=== PATIENT | male | born 1980 | race Caucasian/White ===

== ENCOUNTER 2016-11-15 12:14 | Emergency (ER) | payer MEDICAID, OTHER ==
[2016-11-15] MEDS ORDERED: METHOCARBAMOL 500 MG TABLET PO STA (13:14)
[2016-11-15] MEDS ORDERED: HYDROcod/ACETAM 5/325 MG TABLET PO STA (13:14)
[2016-11-15] MEDS ORDERED: TRIAMCINOLONE 40 MG/ML VIAL IM STA (13:14)
[2016-11-15] MEDS ORDERED: KETOROLAC 30 MG/ML VIAL IM STA (13:14)
[2016-11-15] MEDS ORDERED: TRIAMCINOLONE 40 MG/ML VIAL ONE (13:16)
[2016-11-15] MEDS ORDERED: METHOCARBAMOL 500 MG TABLET PO ONE (13:33)
[2016-11-15] MEDS ORDERED: KETOROLAC 30 MG/ML VIAL ONE (13:34)
[2016-11-15] MEDS ORDERED: HYDROcod/ACETAM 5/325 MG TABLET ONE (13:35)
[2016-11-15 13:45] VITALS: BP 138/93
--- NOTE | 2016-11-15 14:00 | ED Physician Documentation ---
PD HPI BACK PAIN - Stated complaint Stated Complaint: L LEG PAIN - Chief complaint Chief Complaint: Ext Problem - History obtained from History obtained from: Patient - History of Present Illness Timing - onset: How many months ago (2 months) Timing - details: Still present, Waxing and waning Location: Lower, Left (radiating to anteromedial left thigh down to knee.) Quality: Pain, Spasm, Aching Associated symptoms: No: Fever, Weakness, Numbness, Incontinent of urine Worsened by: Movement, Lifting Contributing factors: Lifting Recently seen: Clinic (has been getting PT and has Rx meds from clinic, not effective the past few days as pain is worse. No new injury.) Review of Systems Constitutional: denies: Fever, Chills Skin: denies: Rash, Lesions Neurologic: reports: Numbness (intermittent in left thigh.). denies: Focal weakness PD PAST MEDICAL HISTORY - Past Medical History Cardiovascular: None Respiratory: None Neuro: None Endocrine/Autoimmune: None GI: None : None HEENT: None Psych: None Musculoskeletal: Chronic back pain Derm: None - Past Surgical History Past Surgical History: Yes Ortho: Arthroscopic surgery - Present Medications Home Medications: Ambulatory Orders Medication Instructions Recorded Confirmed Cyclobenzaprine [Flexeril] 1 tab PO DAILY 11/15/16 11/15/16 Dexamethasone [Decadron] 4 mg PO DAILY #5 tablet 11/15/16 Gabapentin [Neurontin] 300 mg PO Q8HR 11/15/16 11/15/16 Hydrocodone/Acetaminophen [[place] 1 each PO Q6H PRN #20 tablet 11/15/16 5-325 Tablet] Methocarbamol [Robaxin] 500 mg PO Q6H PRN #25 tablet 11/15/16 Naproxen 375 mg PO BID #20 tablet 11/15/16 Tramadol HCl [Ultram] 2 tab PO Q6HR 11/15/16 11/15/16 - Allergies Allergies/Adverse Reactions: Allergies Allergy/AdvReac Type Severity Reaction Status Date / Time No Known Drug Allergies Allergy Verified 11/15/16 12:20 - Social History Does the pt smoke?: Yes Smoking Status: Current every day smoker Does the pt drink ETOH?: Yes Does the pt have substance abuse?: Yes - Immunizations Immunizations are current?: Yes Immunizations: TDAP >10years/unknown - POLST Patient has POLST: No PD ED PE NORMAL - Vitals Vital signs reviewed: Yes - General General: Alert and oriented X 3, Well developed/nourished, Other (appears in pain, also distraught about the failure of PT and meds so far in the course of this, frustrated over it for couple of months duration. ) - Abdomen Abdomen: Soft, Non tender - Rectal Rectal: Deferred - Back Back: No spinal TTP (tender left lateral lower back, more around SI area. ) - Derm Derm: Normal color, Warm and dry, No rash - Neuro Neuro: No motor deficit, Other (mild decreased sensation anteriomedial left thigh. Normal motor movement in legs. ) Results - Vitals Vitals: Vital Signs - 24 hr 11/15/16 11/15/16 12:17 13:43 Temperature 36.9 C 38.1 C H Heart Rate 100 77 Respiratory 19 18 Rate Blood Pressure 158/100 H 138/93 H O2 Saturation 100 96 Oxygen O2 Source Room air PD MEDICAL DECISION MAKING - ED course Complexity details: reviewed old records, considered differential (seems musculoskeletal back pain with radiation to left thigh, c/w nerve root. No red flags. ), d/w patient Departure - Departure Disposition: Home, Self Care Clinical Impression: Back pain Qualifiers: Back pain location: low back pain Chronicity: acute Back pain laterality: left Sciatica presence: with sciatica Sciatica laterality: sciatica of left side Qualified Code(s): M54.42 - Lumbago with sciatica, left side Condition: Stable Record reviewed to determine appropriate education?: Yes Instructions: ED Sciatica Follow-Up: Dayron Stephen MD [Primary Care Provider] - Prescriptions: Dexamethasone [Decadron] 4 mg PO DAILY #5 tablet Naproxen 375 mg PO BID #20 tablet Hydrocodone/Acetaminophen [[place] 5-325 Tablet] 1 each PO Q6H PRN #20 tablet PRN Reason: Pain Methocarbamol [Robaxin] 500 mg PO Q6H PRN #25 tablet PRN Reason: Spasms Comments: Continue current medications. Add Decadron daily for 5 days, and Naproxen twice daily for a week. Robaxin for muscle spasms, and add hydrocodone as neede for pain short term. Follow up with PMD in about 4-5 days for follow up on how this is working, call for appt. Discharge Date/Time: 11/15/16 14:11
== END 2016-11-15 14:11 | disposition home or self-care (01) ==
LOC: ED 12:14
DX: M54.42 Lumbago with sciatica, left side (principal); F17.200 Nicotine dependence, unspecified, uncomplicated
CPT/HCPCS: 96372; 99283

== ENCOUNTER 2017-03-21 14:09 | Outpatient (CLI) | payer MEDICAID ==
--- NOTE | 2017-03-21 18:38 | MRI Report ---
EXAM: MRI LUMBAR SPINE WITHOUT CONTRAST EXAM DATE: 03/21/2017 03:07 PM. CLINICAL HISTORY: Radicular low back pain, left-sided sciatica. COMPARISON: None. TECHNIQUE: Multiplanar, multisequence T1-weighted and fluid-sensitive sequences of the lumbar spine f rom T12 to S1 without contrast. Other: None. FINDINGS: Spinal Cord: The conus terminates at T12. No signal abnormality in the visualized spinal cord. Alignment: Normal. No scoliosis or spondylolisthesis. Bone Marrow: Five gwz-pri-xnlziti lumbar vertebral bodies are assumed. No gross fractures or bone les ions. No bone marrow edema. Disk Levels/Facets: T12-L1: Unremarkable. L1-L2: Unremarkable. L2-L3: Mild central broad-based disk bulge. Left lateral intraforaminal disk positive mass effect on the exiting left L2 root. Please see series 401 image 3. Right neural foraminal is normal. No central stenosis. L3-L4: Disk dehydration, superiorly and left laterally directed disk extrusion also extends into the neural foramina with effacement and deformity of the exiting left L3 root on series 401 image 2. This measures 7 x 5 mm transversely and extends for a 16 mm cephalocaudal extent. L4-L5: Broad-based disk bulge is seen. Prominent facets. Mild central stenosis. No foraminal narrowin g. L5-S1: Broad-based disk bulge is seen. Mild facet arthropathy. Mild central stenosis, no foraminal na rrowing. Musculature: Normal. No edema or fatty atrophy. Other: The visualized pelvic cavity is unremarkable. IMPRESSION: 1. Spinal cord terminates at T12 which is normal. No abnormal cord signal is seen. No fractures. 2. L2-L3 shows a mild broad-based bulge centrally and a left lateral intraforaminal disk extrusion ex erting significant mass effect on the left L2 root. No central stenosis. Right neural foramen is norm al. 3. L3-L4 shows disk dehydration with superior and left lateral directed disk extrusion with effacemen t and flattening of the exiting left L3 root. Severe left foraminal stenosis. Central canal and right neural foramen are normal. 4. L4-L5 shows a broad-based bulge and prominent facets. No significant stenosis. 5. L5-S1 shows a broad-based bulge and mild facet arthropathic change. Mild central stenosis, no fora david stenosis. Comment: The following findings are so common in adults without low back pain that while we report th eir presence, they must be interpreted with caution and in the context of the clinical situation. (Re renan Briceño et al, Spine 2001) Prevalence of findings in patients without low back pain: Disk degeneration (any evidence): 92% Disk desiccation/T2 signal loss: 83% Disk height loss: 56% Disk bulge: 64% Disk protrusion: 32% Annular tear/high intensity zone: 38% [facility] Referring Provider Line: [phone] SITE ID: [id number]
== END 2017-03-21 14:10 | disposition home or self-care (01) ==
LOC: DI 14:09
PROVIDERS: ATTEND Family Medicine
DX: M51.26 Other intervertebral disc displacement, lumbar region (principal); M51.36 Other intervertebral disc degeneration, lumbar region; M47.897 Other spondylosis, lumbosacral region
CPT/HCPCS: 72148

== ENCOUNTER 2017-06-14 11:12 | Emergency (ER) | payer MEDICAID ==
[2017-06-14 11:22] VITALS: BP 140/95
[2017-06-14] MEDS ORDERED: predniSONE 20 MG TABLET PO STA (12:48)
[2017-06-14] MEDS ORDERED: KETOROLAC 60 MG/2 ML VIAL IM STA (12:48)
[2017-06-14] MEDS ORDERED: HYDROmorphone 1 MG/ML SYRINGE IM STA (12:48)
--- NOTE | 2017-06-14 12:50 | ED Physician Documentation ---
PD HPI BACK PAIN - Stated complaint Stated Complaint: LEFT SIDE & LEG PX - Chief complaint Chief Complaint: Back Pain - History obtained from History obtained from: Patient - History of Present Illness Timing - onset: Other (36-year-old gentleman with chronic radicular pain from what he describes as an L1-L2 disc herniation seen on prior MRI. Pain suddenly became worse yesterday after coughing and pain radiates down the left leg past the knee without saddle anesthesia, weakness, numbness, tingling, fevers, or inability to walk. He feels most comfortable at rest, laying on his stomach.) Review of Systems Constitutional: denies: Fever, Chills Cardiac: reports: Reviewed and negative Respiratory: reports: Reviewed and negative GI: reports: Reviewed and negative PD PAST MEDICAL HISTORY - Past Medical History Past Medical History: No Cardiovascular: None Respiratory: None Neuro: None Endocrine/Autoimmune: None GI: None : None HEENT: None Psych: None Musculoskeletal: Osteoarthritis, Chronic back pain Derm: None - Past Surgical History Past Surgical History: Yes Ortho: Arthroscopic surgery - Present Medications Home Medications: Ambulatory Orders Medication Instructions Recorded Confirmed Cyclobenzaprine [Flexeril] 1 tab PO DAILY 11/15/16 06/14/17 Gabapentin [Neurontin] 300 mg PO Q8HR 11/15/16 06/14/17 Hydrocodone/Acetaminophen [[place] 1 each PO Q6H PRN #20 tablet 11/15/16 06/14/17 5-325 Tablet] Methocarbamol [Robaxin] 500 mg PO Q6H PRN #25 tablet 11/15/16 06/14/17 Naproxen 375 mg PO BID #20 tablet 11/15/16 06/14/17 Tramadol HCl [Ultram] 2 tab PO Q6HR 11/15/16 06/14/17 HYDROcod/ACETAM 5/325 [[place] 5/325] 1 - 2 ea PO Q6H PRN #15 tablet 06/14/17 predniSONE [Deltasone] 60 mg PO DAILY 5 Days tablet 06/14/17 - Allergies Allergies/Adverse Reactions: Allergies Allergy/AdvReac Type Severity Reaction Status Date / Time No Known Drug Allergies Allergy Verified 06/14/17 11:22 - Social History Does the pt smoke?: Yes Smoking Status: Current every day smoker Does the pt drink ETOH?: Yes ETOH Use: Beer Does the pt have substance abuse?: No - Immunizations Immunizations are current?: Yes Immunizations: TDAP >10years/unknown - POLST Patient has POLST: No PD ED PE NORMAL - Vitals Vital signs reviewed: Yes - General General: Alert and oriented X 3, Other ([place] with motion, comfortable at rest) - Back Back: No spinal TTP - Extremities Extremities: Other (The patient has equal and normal Achilles and patellar reflexes bilaterally. Normal sensation in all areas of the legs. Patient denies saddle anesthesia. Normal strength in flexion-extension at the ankles, knees, and flexion of the hips.) - Neuro Neuro: Alert and oriented X 3, Normal speech - Psych Psych: Normal mood, Normal affect Results - Vitals Vitals: Vital Signs - 24 hr 06/14/17 11:19 Temperature 37.4 C Heart Rate 84 Respiratory 16 Rate Blood Pressure 140/95 H O2 Saturation 100 Oxygen O2 Source Room air PD MEDICAL DECISION MAKING - ED course ED course: The [place] prescription monitoring program was queried with regard to this patient. No concerning findings were found. This patient has seemingly uncomplicated musculoskeletal back pain. The patient has no "red flags." Specifically denies IV drug use, fevers, incontinence, saddle anesthesia. Spinal epidural abscess was considered, given that the patient has no fever, is not diabetic, has no spinal tenderness, does not use IV drugs, and has no bilateral neurologic symptoms, the diagnosis of spinal epidural abscess is considered exceedingly unlikely. Departure - Departure Disposition: Home, Self Care Clinical Impression: Sciatica Qualifiers: Laterality: left Qualified Code(s): M54.32 - Sciatica, left side Condition: Good Record reviewed to determine appropriate education?: Yes Instructions: ED Sciatica Prescriptions: HYDROcod/ACETAM 5/325 [[place] 5/325] 1 - 2 ea PO Q6H PRN #15 tablet PRN Reason: Pain predniSONE [Deltasone] 60 mg PO DAILY 5 Days tablet Comments: Call your doctor to arrange a follow-up appointment, make the next available appointment. In the interim, return anytime if worse or if new symptoms develop. Your blood pressure was elevated today on check into the emergency department. This does not mean that you have hypertension, it is a common phenomenon to come to the emergency department and have elevated blood pressure. I recommend that you see your primary care physician within the week to have it rechecked when you are feeling better. Do not drink or drive while taking narcotic pain medication. Note that many narcotic pain relievers also contain Tylenol/acetaminophen. Please ensure that your total dose of acetaminophen from all sources does not exceed 3 g (3000 mg) per day. You may get constipated while on this medication. Take a stool softener such as Colace twice a day while you are on it. Also add an [id number] laxative such as senna or MiraLAX on any day that you do not have a bowel movement. If you received a narcotic pain medication or sedative while in the emergency department, do not drive for the next 24 hours.
== END 2017-06-14 13:16 | disposition home or self-care (01) ==
LOC: ED 11:12
DX: M54.32 Sciatica, left side (principal); M19.90 Unspecified osteoarthritis, unspecified site; F17.200 Nicotine dependence, unspecified, uncomplicated; R03.0 Elevated blood-pressure reading, without diagnosis of hypertension
CPT/HCPCS: 96372; 99283; J1170; J7512

== ENCOUNTER 2017-06-17 13:13 | Emergency (ER) | payer MEDICAID ==
[2017-06-17] MEDS ORDERED: BUPIVACAINE 0.5%-EPI 1:200000 PF 30 ML VIAL SUBQ ONE (13:52)
[2017-06-17] MEDS ORDERED: HYDROmorphone 1 MG/ML SYRINGE IM STA ×2 (13:52→15:07)
[2017-06-17] MEDS ORDERED: KETOROLAC 60 MG/2 ML VIAL IM STA (13:52)
[2017-06-17] MEDS ORDERED: TRIAMCINOLONE 40 MG/ML VIAL IM STA (13:52)
--- NOTE | 2017-06-17 13:55 | ED Physician Documentation ---
PD HPI BACK PAIN - Stated complaint Stated Complaint: LEFT LEG/LOW BACK PX - Chief complaint Chief Complaint: Back Pain - History obtained from History obtained from: Patient - History of Present Illness Timing - onset: Other (36-year-old gentleman with chronic back pain undergoing an exacerbation with severe pain in the left low back radiating down to the knee , sometimes his knee is giving out on him. He was seen the other day, started on hydrocodone and prednisone which is insufficient. Prior MRI from March of this year reviewed with pretty significant disease.) Review of Systems Constitutional: denies: Fever, Chills Nose: denies: Rhinorrhea / runny nose, Congestion, Foreign Body Respiratory: reports: Reviewed and negative GI: reports: Reviewed and negative : reports: Reviewed and negative PD PAST MEDICAL HISTORY - Past Medical History Cardiovascular: None Respiratory: None Neuro: None Endocrine/Autoimmune: None GI: None : None HEENT: None Psych: None Musculoskeletal: Osteoarthritis, Chronic back pain Derm: None - Past Surgical History Past Surgical History: Yes Ortho: Arthroscopic surgery - Present Medications Home Medications: Ambulatory Orders Medication Instructions Recorded Confirmed Cyclobenzaprine [Flexeril] 1 tab PO DAILY 11/15/16 06/14/17 Gabapentin [Neurontin] 300 mg PO Q8HR 11/15/16 06/14/17 Hydrocodone/Acetaminophen [[place] 1 each PO Q6H PRN #20 tablet 11/15/16 06/14/17 5-325 Tablet] Methocarbamol [Robaxin] 500 mg PO Q6H PRN #25 tablet 11/15/16 06/14/17 Tramadol HCl [Ultram] 2 tab PO Q6HR 11/15/16 06/14/17 predniSONE [Deltasone] 60 mg PO DAILY 5 Days tablet 06/14/17 Gabapentin 2 tab PO TID #90 capsule 06/17/17 Oxycodone HCl/Acetaminophen 1 - 2 tab PO Q4H PRN #15 tablet 06/17/17 [Percocet 5-325 mg Tablet] - Allergies Allergies/Adverse Reactions: Allergies Allergy/AdvReac Type Severity Reaction Status Date / Time No Known Drug Allergies Allergy Verified 06/17/17 13:33 - Social History Does the pt smoke?: Yes Smoking Status: Current every day smoker Does the pt drink ETOH?: Yes Does the pt have substance abuse?: No - Immunizations Immunizations are current?: Yes Immunizations: TDAP >10years/unknown - POLST Patient has POLST: No PD ED PE NORMAL - Vitals Vital signs reviewed: Yes - General General: Alert and oriented X 3, No acute distress - Respiratory Respiratory: No respiratory distress, Clear bilaterally - Abdomen Abdomen: Normal bowel sounds, Soft, Non tender - Back Back: No spinal TTP, Other (Mildly diminished sensation over the left thigh, otherwise symmetric sensation throughout the legs, able to walk and bear weight without issue but is uncomfortable, laying either on his stomach or right lateral decubitus.) - Neuro Neuro: Alert and oriented X 3, Normal speech Results - Vitals Vitals: Vital Signs - 24 hr 06/17/17 13:30 Temperature 37.2 C Heart Rate 81 Respiratory 18 Rate Blood Pressure 160/99 H O2 Saturation 95 Oxygen O2 Source Room air PD MEDICAL DECISION MAKING - ED course ED course: He says that in October he was seen here and had a trigger point injection, this was repeated in the left low back using 9 mL of Marcaine with epi and 40 mg of triamcinolone. The Dilaudid and Toradol were repeated and we will increase his gabapentin and switch him to Percocet. He is advised to talk to his doctor about a spinal referral. Departure - Departure Disposition: 01 Home, Self Care Clinical Impression: Sciatica Qualifiers: Laterality: left Qualified Code(s): M54.32 - Sciatica, left side Condition: Good Record reviewed to determine appropriate education?: Yes Instructions: ED Sciatica Prescriptions: Gabapentin 2 tab PO TID #90 capsule Oxycodone HCl/Acetaminophen [Percocet 5-325 mg Tablet] 1 - 2 tab PO Q4H PRN #15 tablet PRN Reason: Pain Comments: Increasing your gabapentin to 600 mg twice a day, make sure you do not double up on top of which you are already taking, also the Percocet/oxycodone is stronger than the other 2 pain medications, do not take them altogether. I recommend following up with a spine surgeon, one option would be Dr. Baljinder Valdez in [place], . Your blood pressure was elevated today on check into the emergency department. This does not mean that you have hypertension, it is a common phenomenon to come to the emergency department and have elevated blood pressure. I recommend that you see your primary care physician within the week to have it rechecked when you are feeling better. Forms: Activity restrictions
[2017-06-17] MEDS ORDERED: LORazepam 2 MG/ML VIAL IM STA (15:56)
[2017-06-17 17:00] VITALS: BP 158/98
== END 2017-06-17 16:56 | disposition home or self-care (01) ==
LOC: ED 13:13
DX: M54.32 Sciatica, left side (principal); R03.0 Elevated blood-pressure reading, without diagnosis of hypertension; G89.29 Other chronic pain; F17.200 Nicotine dependence, unspecified, uncomplicated
CPT/HCPCS: 20552; 96372; 99283; J1170; J2060

== ENCOUNTER 2017-06-21 10:53 | Emergency (ER) | payer MEDICAID ==
[2017-06-21] MEDS ORDERED: HYDROmorphone 1 MG/ML SYRINGE IM STA (12:27)
[2017-06-21] MEDS ORDERED: LIDOCAINE 1%-EPI 1:100000 20 ML MDV SUBQ STA (12:28)
--- NOTE | 2017-06-21 12:28 | ED Physician Documentation ---
PD HPI LOWER EXT INJURY - Stated complaint Stated Complaint: KNEE PX - Chief complaint Chief Complaint: Ext Problem - History obtained from History obtained from: Patient - History of Present Illness PD HPI LOW EXT INJURY LOCATION: Other (He has chronic back pain, around [place] he coughed and felt a pop in his low back and has had trouble with the left leg ever since. He has been seen a couple of times, he has increasing pain seems more like the left knee now with a small effusion but he denies any fevers. He says it is quite painful when he twists the knee, not so much with flexion or extension but he does feel weak in that leg. He still denies any saddle anesthesia or incontinence.) Review of Systems Ten Systems: 10 systems reviewed and negative Constitutional: denies: Fever, Chills, Myalgias, Fatigue Musculoskeletal: reports: Back pain (mild) PD PAST MEDICAL HISTORY - Past Medical History Cardiovascular: None Respiratory: None Neuro: None Endocrine/Autoimmune: None GI: None : None HEENT: None Psych: None Musculoskeletal: Osteoarthritis, Chronic back pain Derm: None - Past Surgical History Past Surgical History: Yes Ortho: Arthroscopic surgery - Present Medications Home Medications: Ambulatory Orders Medication Instructions Recorded Confirmed Cyclobenzaprine [Flexeril] 1 tab PO DAILY 11/15/16 06/21/17 Gabapentin [Neurontin] 300 mg PO Q8HR 11/15/16 06/21/17 Hydrocodone/Acetaminophen [[place] 1 each PO Q6H PRN #20 tablet 11/15/16 06/21/17 5-325 Tablet] Methocarbamol [Robaxin] 500 mg PO Q6H PRN #25 tablet 11/15/16 06/21/17 Tramadol HCl [Ultram] 2 tab PO Q6HR 11/15/16 06/21/17 Oxycodone HCl/Acetaminophen 1 - 2 tab PO Q4H PRN #15 tablet 06/17/17 06/21/17 [Percocet 5-325 mg Tablet] Oxycodone HCl/Acetaminophen 1 - 2 tab PO Q4H PRN #10 tablet 06/21/17 [Percocet 5-325 mg Tablet] - Allergies Allergies/Adverse Reactions: Allergies Allergy/AdvReac Type Severity Reaction Status Date / Time No Known Drug Allergies Allergy Verified 06/17/17 13:33 - Social History Does the pt smoke?: Yes Smoking Status: Current every day smoker Does the pt drink ETOH?: Yes Does the pt have substance abuse?: No - Family History Family history: reports: Non contributory - Immunizations Immunizations are current?: Yes Immunizations: TDAP >10years/unknown - POLST Patient has POLST: No PD ED PE NORMAL - Vitals Vital signs reviewed: Yes - General General: Alert and oriented X 3, No acute distress - Cardiac Cardiac: RRR, No murmur - Respiratory Respiratory: No respiratory distress, Clear bilaterally - Abdomen Abdomen: Normal bowel sounds, Soft, Non tender - Extremities Extremities: Other (There is a small effusion of the left knee, but it is grossly nontender and he flexes and extends without significant pain. He does have some pain when I twist the leg, in the superior knee area. The hip is nontender. There is no warmth or redness or rash.) - Neuro Neuro: Alert and oriented X 3, Normal speech - Psych Psych: Normal mood, Normal affect Results - Vitals Vitals: Vital Signs - 24 hr 06/21/17 06/21/17 06/21/17 10:54 12:47 14:28 Temperature 37.7 C H Heart Rate 83 72 74 Respiratory 18 16 18 Rate Blood Pressure 153/101 H 138/96 H 151/114 H O2 Saturation 100 96 97 06/21/17 06/21/17 14:50 17:15 Temperature 36.4 C L Heart Rate 74 70 Respiratory 16 18 Rate Blood Pressure 132/96 H 132/96 H O2 Saturation 95 95 Oxygen O2 Source Room air - Labs Labs: Microbiology 06/21/17 12:38 Body Fluid Culture - Preliminary Synovial Fluid Laboratory Tests 06/21/17 06/21/17 06/21/17 12:40 12:40 12:40 WBC 14.6 H RBC 4.67 L Hgb 14.9 Hct 43.5 MCV 93.2 MCH 32.0 H MCHC 34.3 RDW 13.3 Plt Count 309 MPV 7.4 Neut # 10.1 H Lymph # 2.8 [place] # 1.4 H Eos # 0.2 Baso # 0.1 Absolute Nucleated RBC 0.01 Nucleated RBC % 0.0 ESR 1 Sodium 136 Potassium 4.1 Chloride 99 L Carbon Dioxide 27 Anion Gap 10.0 BUN 16 Creatinine 0.8 Estimated GFR (MDRD) 108 Glucose 93 Calcium 8.9 Total Bilirubin 0.5 AST 27 ALT 44 Alkaline Phosphatase 52 C-Reactive Protein < 1.0 Total Protein 7.5 Albumin 4.4 Globulin 3.1 Albumin/Globulin Ratio 1.4 Lipase 29 Procedures - Arthrocentesis Joint: Knee, Left Preparation: Consent obtained, Sterile prep and drape Anesthesia: Lidocaine 1% Fluid: Sent for culture, Fluid obtained - cc (1ml), Sent for gram stain, Other ( The fluid obtained from left knee arthrocentesis was not much, less than 1 ml, it did not appear affect infected, it was relatively clear with a little bit of blood.) PD MEDICAL DECISION MAKING - ED course ED course: 36-year-old gentleman presents, third visit with lower extremity pain previously thought consistent to be radicular from prior known lumbar spine radiculopathy. It started while coughing which fit as well. He has persistent pain that really had now is settled more into the leg and he is tender in the suprapatellar area with a high normal temperature and leukocytosis without elevated ESR or CRP. An arthrocentesis of the left leg was done and only an inconsequential amount of synovial fluid was removed and it did not look grossly infected. It was not a sufficient quantity for cell count but was sent for culture. We tried for MRI, but he was unable to lay flat for the MRI. This is more consistent with a radicular etiology. He refused the MRI and will see his doctor tomorrow. Departure - Departure Disposition: 01 Home, Self Care Clinical Impression: Pain in left leg Sciatica Qualifiers: Laterality: left Qualified Code(s): M54.32 - Sciatica, left side Condition: Good Record reviewed to determine appropriate education?: Yes Instructions: ED Sciatica Prescriptions: Oxycodone HCl/Acetaminophen [Percocet 5-325 mg Tablet] 1 - 2 tab PO Q4H PRN #10 tablet PRN Reason: Pain Comments: See your doctor tomorrow as scheduled. Your blood pressure was elevated today on check into the emergency department. This does not mean that you have hypertension, it is a common phenomenon to come to the emergency department and have elevated blood pressure. I recommend that you see your primary care physician within the week to have it rechecked when you are feeling better. Forms: Activity restrictions Discharge Date/Time: 06/21/17 17:16
[2017-06-21 12:48] LABS: BASOPHILS # (AUTO) 0.1 10^3/uL (0.0-0.1); BASOPHILS % (AUTO) 0.5 %; EOSINOPHILS # (AUTO) 0.2 10^3/uL (0.0-0.7); EOSINOPHILS % (AUTO) 1.3 %; HGB - HEMOGLOBIN 14.9 g/dL (14.0-18.0); LYMPHOCYTES # (AUTO) 2.8 10^3/uL (1.5-3.5); LYMPHOCYTES % (AUTO) 19.2 %; MEAN CORPUSCULAR HGB CONC 34.3 g/dL (32.0-36.0); MEAN CORPUSCULAR VOLUME 93.2 fL (80.0-94.0); MEAN PLATELET VOLUME 7.4 fL (7.4-11.4); MONOCYTES # (AUTO) 1.4 10^3/uL (0.0-1.0); MONOCYTES % (AUTO) 9.6 %; NEUTROPHILS # (AUTO) 10.1 10^3/uL (1.5-6.6); NEUTROPHILS % (AUTO) 69.4 %; PLT - PLATELET COUNT 309 10^3/uL (130-450); RED BLOOD COUNT 4.67 10^6/uL (4.70-6.10); RED CELL DISTRIBUTION WIDTH 13.3 % (12.0-15.0); WHITE BLOOD COUNT 14.6 x10^3/uL (4.8-10.8)
[2017-06-21 13:05] LABS: ALBUMIN 4.4 g/dL (3.2-5.5); ALBUMIN/GLOBULIN RATIO 1.4 (1.0-2.2); ALKALINE PHOSPHATASE 52 IU/L (42-121); ALT ALANINE AMINOTRANSFERASE 44 IU/L (10-60); AST ASPARTATE AMINOTRANSFERASE 27 IU/L (10-42); BILIRUBIN,TOTAL 0.5 mg/dL (0.2-1.0); BUN - BLOOD UREA NITROGEN 16 mg/dL (6-20); CALCIUM 8.9 mg/dL (8.5-10.3); CARBON DIOXIDE - CO2 27 mmol/L (21-32); CHLORIDE 99 mmol/L (101-111); CREATININE 0.8 mg/dL (0.6-1.2); GFR - MDRD 108 (>89); GLUCOSE 93 mg/dL (70-100); LIPASE 29 U/L (22-51); SODIUM 136 mmol/L (135-145); TOTAL PROTEIN 7.5 g/dL (6.7-8.2)
[2017-06-21 13:07] LABS: CRP - C-REACTIVE PROTEIN < 1.0 mg/dL (0-1.0)
--- NOTE | 2017-06-21 13:30 | XRAY Report ---
EXAM: LEFT KNEE RADIOGRAPHY EXAM DATE: 06/21/2017 01:09 PM. CLINICAL HISTORY: Knee pain, no trauma. COMPARISON: None. TECHNIQUE: 3 views. FINDINGS: Bones: Normal. No fractures or bone lesions. Joints: There is mild medial compartment joint space narrowing. Soft Tissues: Normal. No soft tissue swelling. IMPRESSION: No fracture or bony destruction. There is mild joint space narrowing of the medial compar tment of the knee. [facility] Referring Provider Line: [phone] SITE ID: [id number]
[2017-06-21] MEDS ORDERED: GADOBUTROL 7.5 MMOL/7.5 ML VIAL ONE (14:24)
[2017-06-21 14:50] VITALS: BP 132/96
[2017-06-21] MEDS ORDERED: HYDROmorphone 1 MG/ML SYRINGE IVP STA ×3 (15:32→16:23)
[2017-06-21] MEDS ORDERED: LORazepam 2 MG/ML VIAL IVP STA (16:12)
[2017-06-21] MEDS ORDERED: HYDROmorphone 1 MG/ML SYRINGE ONE (16:19)
[2017-06-21] MEDS ORDERED: LORazepam 2 MG/ML VIAL ONE (16:20)
== END 2017-06-21 17:16 | disposition home or self-care (01) ==
LOC: ED 10:53
DX: M25.562 Pain in left knee (principal); M54.32 Sciatica, left side; R03.0 Elevated blood-pressure reading, without diagnosis of hypertension; M19.90 Unspecified osteoarthritis, unspecified site; F17.200 Nicotine dependence, unspecified, uncomplicated
CPT/HCPCS: 20600; 36415; 73562; 80053; 83690; 85025; 85651; 86140; 87070; 87205; 96372; 96374; 96375; 96376; 99283; J1170; J2060; 89051; 89060

== ENCOUNTER 2017-10-03 09:40 | Emergency (ER) | payer MEDICAID ==
[2017-10-03 10:21] LABS: BILIRUBIN,URINE NEGATIVE (NEGATIVE); GLUCOSE, URINE (UA) NEGATIVE (NEGATIVE); KETONES,URINE (UA) NEGATIVE (NEGATIVE); LEUKOCYTE ESTERASE, URINE NEGATIVE (NEGATIVE); NITRITE,URINE NEGATIVE (NEGATIVE); OCCULT BLOOD,URINE NEGATIVE (NEGATIVE); PROTEIN,URINE NEGATIVE (NEGATIVE); UROBILINOGEN,URINE 0.2 (NORMAL) E.U./dL (NORMAL)
[2017-10-03 10:23] LABS: CLARITY,URINE CLEAR (CLEAR)
--- NOTE | 2017-10-03 10:25 | ED Physician Documentation ---
History of Present Illness - Stated complaint Stated Complaint: MALE /POST OP - Chief complaint Chief Complaint: General - Additonal information Additional information: hx from pt 37 m 2 days 2/o diskectomy at [facility] having pain to back at surgical site worse with movement and continued numbness and tingling to LLE medial thigh patella and at dean region same as before surgery - no new numbness or weakness - no saddle anesthesia and dysuria hematuria and a cough which aggrevates the back pain no fever no abd pain no incontinence states he called [facility] and was asked to come to local ER to be checked for a kidney stone Review of Systems Constitutional: denies: Fever Cardiac: denies: Chest pain / pressure Respiratory: reports: Cough GI: denies: Abdominal Pain : reports: Dysuria, Hematuria Musculoskeletal: reports: Back pain Neurologic: reports: Numbness (not new). denies: Focal weakness PD PAST MEDICAL HISTORY - Past Medical History Past Medical History: Yes Cardiovascular: None Respiratory: None Neuro: None Endocrine/Autoimmune: None GI: None : None HEENT: None Psych: None Musculoskeletal: Osteoarthritis, Chronic back pain Derm: None - Past Surgical History Past Surgical History: Yes Ortho: Arthroscopic surgery, Spine surgery - Present Medications Home Medications: Ambulatory Orders Medication Instructions Recorded Confirmed Cyclobenzaprine [Flexeril] 1 tab PO DAILY 11/15/16 06/21/17 Gabapentin [Neurontin] 300 mg PO Q8HR 11/15/16 06/21/17 Hydrocodone/Acetaminophen [Alpha 1 each PO Q6H PRN #20 tablet 11/15/16 06/21/17 5-325 Tablet] Methocarbamol [Robaxin] 500 mg PO Q6H PRN #25 tablet 11/15/16 06/21/17 Tramadol HCl [Ultram] 2 tab PO Q6HR 11/15/16 06/21/17 Oxycodone HCl/Acetaminophen 1 - 2 tab PO Q4H PRN #15 tablet 06/17/17 06/21/17 [Percocet 5-325 mg Tablet] Oxycodone HCl/Acetaminophen 1 - 2 tab PO Q4H PRN #10 tablet 06/21/17 [Percocet 5-325 mg Tablet] Benzonatate [Tessalon] 100 mg PO TID PRN #20 capsule 10/03/17 guaiFENesin/DEXTROMETHORPHAN 10 ml PO Q6H PRN #120 ml 10/03/17 [Robitussin Dm] - Allergies Allergies/Adverse Reactions: Allergies Allergy/AdvReac Type Severity Reaction Status Date / Time No Known Drug Allergies Allergy Verified 10/03/17 10:04 - Social History Does the pt smoke?: Yes Smoking Status: Current every day smoker Does the pt drink ETOH?: Yes Does the pt have substance abuse?: No - Immunizations Immunizations are current?: Yes Immunizations: TDAP >10years/unknown - POLST Patient has POLST: No PD ED PE NORMAL - Vitals Vital signs reviewed: Yes - General General: Alert and oriented X 3 - Neck Neck: Supple, no meningeal sign - Cardiac Cardiac: RRR - Respiratory Respiratory: No respiratory distress, Clear bilaterally - Abdomen Abdomen: Soft, Non tender - Back Back: Other (surgical site no dehisc and no sign of infection, no CVA TTP, no focal spine redness or swelling) - Neuro Neuro: No motor deficit (hip flex, knee ext, foot dorsi plantar flexion and great toe ext all 5/5, no clonuis, patellar DTR 1+/4 florina, denies saddle anesthesia, dec sensation meidal thigh patellar an dpretib region not new per pt , + pulses) Results - Vitals Vitals: Vital Signs - 24 hr 10/03/17 09:44 Temperature 37.0 C Heart Rate 97 Respiratory 12 Rate Blood Pressure 144/104 H O2 Saturation 100 Oxygen O2 Source Room air - Labs Labs: Laboratory Tests 10/03/17 09:50 Urine Color DARK YELLOW Urine Clarity CLEAR Urine pH 6.0 Ur Specific [place] >=1.030 H Urine Protein NEGATIVE Urine Glucose (UA) NEGATIVE Urine Ketones NEGATIVE Urine Occult Blood NEGATIVE Urine Nitrite NEGATIVE Urine Bilirubin NEGATIVE Urine Urobilinogen 0.2 (NORMAL) Ur Leukocyte Esterase NEGATIVE Ur Microscopic Review NOT INDICATED Urine Culture Comments NOT INDICATED - Rads (name of study) CXR Radiology: See rad report (NACP[facility]) PD MEDICAL DECISION MAKING - ED course ED course: nl UA - no blood no infection post void zero pain seems typical for post op no new neuro deficit feel safe to dc Departure - Departure Disposition: 01 Home, Self Care Clinical Impression: Post-op pain Condition: Good Prescriptions: Benzonatate [Tessalon] 100 mg PO TID PRN #20 capsule PRN Reason: to ease cough guaiFENesin/DEXTROMETHORPHAN [Robitussin Dm] 10 ml PO Q6H PRN #120 ml PRN Reason: Cough Comments: The urine sample was fine - no blood or infection now. You are able to completely empty your bladder. You do not have any new numbness or weakness Your surgical site appears to be healing well without infection The xray is fine too - no pneumonia I have prescribed medication to ease your cough so that won't continue to aggravate the back pain Continue your medications as prescribed by [facility] Follow up with your surgeon as scheduled Return if worse as outlined in your post operative discharge instructions Your blood pressure was high today - please get that rechecked
[2017-10-03] MEDS ORDERED: oxyCODONE 5 MG TABLET PO STA (10:33)
--- NOTE | 2017-10-03 11:14 | XRAY Preliminary Report ---
Exam: XR CHEST 2 VIEW X-RAY IMPRESSION: No evidence of active cardiopulmonary process. [facility] SITE ID: [id number]
--- NOTE | 2017-10-03 11:15 | XRAY Report ---
EXAM: CHEST RADIOGRAPHY EXAM DATE: 10/03/2017 11:06 AM. CLINICAL HISTORY: Post op cough. COMPARISON: None. TECHNIQUE: 2 views. FINDINGS: Lungs/Pleura: No focal opacities evident. No pleural effusion. No pneumothorax. Normal volumes. Mediastinum: Heart and mediastinal contours are unremarkable. Other: None. IMPRESSION: No evidence of active cardiopulmonary process. [facility] Referring Provider Line: [phone] SITE ID: [id number]
[2017-10-03 12:05] VITALS: BP 126/93
== END 2017-10-03 12:56 | disposition home or self-care (01) ==
LOC: ED 09:40
DX: M54.9 Dorsalgia, unspecified (principal); G89.18 Other acute postprocedural pain; M19.90 Unspecified osteoarthritis, unspecified site; F17.200 Nicotine dependence, unspecified, uncomplicated
CPT/HCPCS: 71046; 81003; 99283; A9270; 81001; 87086

== ENCOUNTER 2018-12-14 20:17 | Emergency (ER) | payer MEDICAID ==
[2018-12-14 20:29] VITALS: BP 164/106
--- NOTE | 2018-12-14 21:16 | ED Physician Documentation ---
PD HPI UPPER EXT INJURY - Stated complaint Stated Complaint: RT SHOULDER INJ - Chief complaint Chief Complaint: Trauma Ext - History obtained from History obtained from: Patient - History of Present Illness Location: Right, Shoulder Type of injury: Fall (while running and landed onto right shoulder anterolateral aspect.) Timing - onset: Today Timing - details: Abrupt onset, Still present Worsened by: Moving, Palpating (at clavicle and lateral shoulder area.) Associated symptoms: No: Weakness, Numbness Similar symptoms before: Has not had sx before Recently seen: Not recently seen Review of Systems Skin: denies: Abrasion (s), Laceration (s) Neurologic: denies: Focal weakness, Numbness, Altered mental status, Head injury PD PAST MEDICAL HISTORY - Past Medical History Cardiovascular: None Respiratory: None Endocrine/Autoimmune: None GI: None : None HEENT: None Psych: None Musculoskeletal: Osteoarthritis, Chronic back pain Derm: None - Past Surgical History Past Surgical History: Yes Ortho: Arthroscopic surgery, Spine surgery - Present Medications Home Medications: Ambulatory Orders Medication Instructions Recorded Confirmed Cyclobenzaprine [Flexeril] 1 tab PO DAILY 11/15/16 06/21/17 Gabapentin [Neurontin] 300 mg PO Q8HR 11/15/16 06/21/17 Hydrocodone/Acetaminophen [[place] 1 each PO Q6H PRN #20 tablet 11/15/16 06/21/17 5-325 Tablet] Methocarbamol [Robaxin] 500 mg PO Q6H PRN #25 tablet 11/15/16 06/21/17 Tramadol HCl [Ultram] 2 tab PO Q6HR 11/15/16 06/21/17 Oxycodone HCl/Acetaminophen 1 - 2 tab PO Q4H PRN #15 tablet 06/17/17 06/21/17 [Percocet 5-325 mg Tablet] Oxycodone HCl/Acetaminophen 1 - 2 tab PO Q4H PRN #10 tablet 06/21/17 [Percocet 5-325 mg Tablet] Benzonatate [Tessalon] 100 mg PO TID PRN #20 capsule 10/03/17 guaiFENesin/DEXTROMETHORPHAN 10 ml PO Q6H PRN #120 ml 10/03/17 [Robitussin Dm] Oxycodone HCl/Acetaminophen 1 each PO Q6H PRN #14 tablet 12/14/18 [Percocet 5-325 mg Tablet] RX: Naproxen 500 mg PO BID #20 tablet 12/14/18 - Allergies Allergies/Adverse Reactions: Allergies Allergy/AdvReac Type Severity Reaction Status Date / Time No Known Drug Allergies Allergy Verified 10/03/17 10:04 - Social History Does the pt smoke?: Yes Smoking Status: Current every day smoker Does the pt drink ETOH?: Yes Does the pt have substance abuse?: No - Immunizations Immunizations are current?: Yes Immunizations: TDAP >10years/unknown - POLST Patient has POLST: No PD ED PE NORMAL - Vitals Vital signs reviewed: Yes - General General: Alert and oriented X 3, No acute distress, Well developed/nourished - HEENT HEENT: Atraumatic - Neck Neck: Supple, no meningeal sign, No bony TTP, No adenopathy - Derm Derm: Normal color, Warm and dry - Extremities Extremities: Other (The right shoulder is tender at the AC joint area. There is no gross step-off or deformity. There is pain with range of motion of the right shoulder. This includes most all directions so hard to delineate if rotator cuff injury as well or just hurting at the time. Passive range of motion is less painful.) - Neuro Neuro: Alert and oriented X 3, No motor deficit, No sensory deficit Results - Vitals Vitals: Vital Signs - 24 hr 12/14/18 20:25 Temperature 36.7 C Heart Rate 78 Respiratory 16 Rate Blood Pressure 164/106 H O2 Saturation 99 Oxygen O2 Source Room air - Rads (name of study) right shoulder Radiology: Prelim report reviewed (normal), EMP read contemporaneously (I think there is a slight step-off at the AC joint suggestive of partial ligament tears.), See rad report PD MEDICAL DECISION MAKING - ED course Complexity details: re-evaluated patient (No dislocation. There is some slight step-off of the AC joint. We will place him in a sling and provide some anti- inflammatories and pain medicines.), considered differential (Consider clavicle fracture versus AC injury versus rotator cuff.), d/w patient Departure - Departure Disposition: 01 Home, Self Care Clinical Impression: Strain of acromioclavicular joint Qualifiers: Encounter type: initial encounter Laterality: right Qualified Code(s): S46.911A - Strain of unspecified muscle, fascia and tendon at shoulder and upper arm level, right arm, initial encounter Condition: Stable Record reviewed to determine appropriate education?: Yes Health Concerns: acute shoulder injury Plan of Treatment: sling, NSAIDs, and limited use of shoulder Care Goals: normal function of shoulder Assessment: Likely AC strain, though may have some rotator cuff strain as well. Follow up with PMD/Ortho in a week to reassess. Instructions: ED Sprain AC Joint Follow-Up: Dayron Stephen MD [Primary Care Provider] - Tera Smart MD [Provider Admit Priv/Credential] - Prescriptions: RX: Naproxen 500 mg PO BID #20 tablet Oxycodone HCl/Acetaminophen [Percocet 5-325 mg Tablet] 1 each PO Q6H PRN #14 tablet PRN Reason: pain Comments: I think this is a strain of the ligaments hold the acromion and clavicle together (AC joint strain). This commonly will take a few weeks to heal up. During that time no heavy lifting, push pole, overhead reaching. The sling initially for the discomfort. Follow-up with your primary care or orthopedics in about a week, call for an appointment. This is to see if it is healing up well. Ibuprofen or naproxen for inflammation. Add pain medicine if needed. Forms: Activity restrictions Discharge Date/Time: 12/14/18 22:18
[2018-12-14] MEDS ORDERED: oxyCODONE 5 MG TABLET PO STA (21:25)
[2018-12-14] MEDS ORDERED: METHOCARBAMOL 500 MG TABLET PO STA (21:25)
--- NOTE | 2018-12-14 21:43 | XRAY Report ---
Reason: shoulder inj Procedure Date: 12/14/2018 Accession Number: [id number] / [id number] Procedure: XR - Shoulder 3 View RT CPT Code: FULL RESULT: EXAM: RIGHT SHOULDER RADIOGRAPHY EXAM DATE: 12/14/2018 09:29 PM. CLINICAL HISTORY: Shoulder inj. COMPARISON: SHOULDER 3 VIEW LT 01/14/2013 10:09 AM. TECHNIQUE: 3 views. FINDINGS: Bones: Normal. No fracture or bone lesion. Joints: The glenohumeral and acromioclavicular joints are normal. Soft tissues: The visualized hemithorax is unremarkable. No soft tissue swelling. IMPRESSION: Normal shoulder radiography. [facility]
== END 2018-12-14 22:18 | disposition home or self-care (01) ==
LOC: ED 20:17
DX: S46.811A Strain of other muscles, fascia and tendons at shoulder and upper arm level, right arm, initial encounter (principal); W01.0XXA Fall on same level from slipping, tripping and stumbling without subsequent striking against object, initial encounter; Y93.02 Activity, running; F17.200 Nicotine dependence, unspecified, uncomplicated
CPT/HCPCS: 73030; 99283; A9270

== ENCOUNTER 2020-12-29 12:20 | Outpatient (CLI) | payer MEDICAID | END 2020-12-29 12:21 | disposition E | LOC: EMS 12:20 ==